=== PATIENT | female | born 2000 | race Caucasian/White ===

== ENCOUNTER 2022-04-27 05:56 | Emergency (ER) | payer BC, OTHER, SELFPAY ==
[2022-04-27] MEDS ORDERED: Dexamethasone 10 MG/ML VIAL ONE (06:50)
[2022-04-27 07:54] LABS: SARS-CoV-2 NAA Rapid Test Not Detected (NotDetected)
== END 2022-04-27 08:30 | disposition home or self-care (01) ==
LOC: CSHERS 05:56
DX: J18.9 Pneumonia, unspecified organism (principal); Z20.822 Contact with and (suspected) exposure to COVID-19
CPT/HCPCS: 71045; J1100